=== PATIENT | female | born 1945 | race Two or more races ===

== ENCOUNTER → 2017-05-09 | Emergency (ER) | payer OTHER ==
[~2017-05-09] VITALS: Ht 170.2 cm; Wt 68.9 kg
[~2017-05-09] MED LIST: AMOX1TAB12 PO; ASPIR 8181 MG; CLARITIN-D1 TAB.SR1 PO; DOLOGEN CAPLET1 EACH PO; FLONASE16 GM NS; INTESTINEX1 CA1 PO; LIPITOR20 MG; MUCINEX1200 MG/BO PO; NASONEX17 GM NS; TOPROL XL25 M1; TUSSIONEX PENNKI5 ML PO; ZITHROMAX TRI-500 MG PO; ZITHROMAX200 MG PO; ZYRTEC10 MG PO; [UNRECOGNIZED DRUG - OTHER] PO
== END | disposition left against medical advice (07) ==
LOC: ER 17:36
DX: Z53.20 Procedure and treatment not carried out because of patient's decision for unspecified reasons (principal)

== ENCOUNTER 2017-05-10 14:03 | Emergency (ER) | payer OTHER ==
[~2017-05-10] VITALS: Ht 170.2 cm; Wt 69.4 kg
== END 2017-05-10 23:04 | disposition home or self-care (01) ==
LOC: ER 14:03
DX: J06.9 Acute upper respiratory infection, unspecified (principal); J11.1 Influenza due to unidentified influenza virus with other respiratory manifestations

== ENCOUNTER → 2017-07-30 | Outpatient (CLI) | payer OTHER | END | disposition home or self-care (01) | LOC: SONOGRAMA 08:46 | DX: R16.0 Hepatomegaly, not elsewhere classified (principal); K76.89 Other specified diseases of liver ==

== ENCOUNTER 2017-09-15 20:01 | Emergency (ER) | payer OTHER ==
[~2017-09-15] VITALS: Ht 157.5 cm; Wt 72.1 kg
== END 2017-09-15 22:44 | disposition home or self-care (01) ==
LOC: ER 20:01
DX: S91.321A Laceration with foreign body, right foot, initial encounter (principal); W25.XXXA Contact with sharp glass, initial encounter; Y93.89 Activity, other specified; Y92.018 Other place in single-family (private) house as the place of occurrence of the external cause; Y99.8 Other external cause status

== ENCOUNTER 2017-09-16 16:21 | Emergency (ER) | payer OTHER ==
[~2017-09-16] VITALS: Ht 154.9 cm; Wt 72.1 kg
== END 2017-09-16 18:22 | disposition home or self-care (01) ==
LOC: ER 16:21
DX: M79.671 Pain in right foot (principal); S91.321D Laceration with foreign body, right foot, subsequent encounter; W25.XXXD Contact with sharp glass, subsequent encounter

== ENCOUNTER 2017-09-22 16:46 | Emergency (ER) | payer OTHER ==
[~2017-09-22] VITALS: Ht 154.9 cm; Wt 72.1 kg
== END 2017-09-22 17:38 | disposition home or self-care (01) ==
LOC: ER 16:46
DX: Z48.02 Encounter for removal of sutures (principal)

== ENCOUNTER 2017-10-08 11:23 | Emergency (ER) | payer OTHER ==
[~2017-10-08] VITALS: Ht 170.2 cm; Wt 72.1 kg
== END 2017-10-08 13:43 | disposition home or self-care (01) ==
LOC: ER 11:23
DX: J06.9 Acute upper respiratory infection, unspecified (principal)

== ENCOUNTER 2017-12-26 12:17 | Outpatient (CLI) | payer OTHER | END 2017-12-26 12:25 | disposition home or self-care (01) | LOC: RAD 501 12:17 | DX: D12.8 Benign neoplasm of rectum (principal) ==

== ENCOUNTER 2018-01-09 06:00 | Day surgery (SDC) | payer OTHER ==
[~2018-01-09] VITALS: Ht 170.2 cm; Wt 71.2 kg
== END 2018-01-10 10:32 | disposition home or self-care (01) ==
LOC: CIR.AMB 06:00 → SURH 06:05 → O/R 06:05 → SURG 10:58 → O/R 10:58 → SURH 11:45 → SURG 12:04 → O/R 12:04 → SURH 12:04 → EDSTATUS 13:30 → SURH 13:30 → CIR.AMB 01-10 10:32 → O/R 01-10 11:32 → SURH 01-10 11:32
DX: D12.8 Benign neoplasm of rectum (principal)

== ENCOUNTER 2018-03-11 11:29 | Emergency (ER) | payer OTHER ==
[~2018-03-11] VITALS: Ht 170.2 cm; Wt 71.2 kg
[2018-03-11] MEDS ORDERED: DICLOFENAC SODI50 MG PO (15:26)
[2018-03-11] MEDS ORDERED: NORFLEX100MG PO (15:26)
[2018-03-11] MEDS ORDERED: MEDROLPACK PO (15:26)
== END 2018-03-11 15:54 | disposition home or self-care (01) ==
LOC: ER 11:29
DX: M54.5 Low back pain (principal)

== ENCOUNTER 2018-03-22 15:27 | Emergency (ER) | payer OTHER ==
[~2018-03-22] VITALS: Ht 170.2 cm; Wt 70.8 kg
[~2018-03-22 15:27] MED LIST changes: +DICLOFENAC SODI50 MG PO; +MEDROLPACK PO; +NORFLEX100MG PO
== END 2018-03-22 22:01 | disposition home or self-care (01) ==
LOC: ER 15:27
DX: M25.561 Pain in right knee (principal)

== ENCOUNTER 2018-03-26 09:27 | Outpatient (CLI) | payer OTHER | END 2018-03-26 16:01 | disposition home or self-care (01) | LOC: MRI 09:27 | DX: M23.321 Other meniscus derangements, posterior horn of medial meniscus, right knee (principal) | CPT/HCPCS: 73722; A9579; 73721 ==

== ENCOUNTER 2018-07-18 13:30 | Outpatient (CLI) | payer OTHER | END 2018-07-18 17:00 | disposition home or self-care (01) | LOC: MRI 13:30 | DX: M25.561 Pain in right knee (principal) | CPT/HCPCS: 73721 ==

== ENCOUNTER → 2018-08-01 | Outpatient (CLI) | payer OTHER | END | disposition home or self-care (01) | LOC: NUCLEAR 07-22 10:00 | DX: M81.0 Age-related osteoporosis without current pathological fracture (principal) ==

== ENCOUNTER 2018-08-28 10:33 | Outpatient (CLI) | payer OTHER | END 2018-08-28 11:18 | disposition home or self-care (01) | LOC: RAD 501 10:33 | DX: M25.561 Pain in right knee (principal); M25.562 Pain in left knee ==

== ENCOUNTER 2019-02-25 10:33 | Outpatient (CLI) | payer OTHER | END 2019-02-25 10:37 | disposition home or self-care (01) | LOC: RAD 10:33 | DX: I11.9 Hypertensive heart disease without heart failure (principal) ==

== ENCOUNTER 2019-05-16 09:31 | Outpatient (CLI) | payer OTHER | END 2019-05-16 10:08 | disposition home or self-care (01) | LOC: SONOGRAMA 09:31 | DX: N83.202 Unspecified ovarian cyst, left side (principal) ==

== ENCOUNTER 2019-07-16 11:15 | Outpatient (CLI) | payer OTHER | END 2019-07-16 11:20 | disposition home or self-care (01) | LOC: RAD 11:15 | DX: Z96.651 Presence of right artificial knee joint (principal) ==

== ENCOUNTER 2019-07-22 18:06 | Emergency (ER) | payer OTHER ==
[~2019-07-22] VITALS: Ht 170.2 cm; Wt 68.0 kg
[2019-07-22] MEDS ORDERED: METOPROLOL SUCC25 MG (18:23)
== END 2019-07-22 19:08 | disposition home or self-care (01) ==
LOC: ER 18:06
DX: S52.592A Other fractures of lower end of left radius, initial encounter for closed fracture (principal); M12.532 Traumatic arthropathy, left wrist; W18.09XA Striking against other object with subsequent fall, initial encounter; Z96.651 Presence of right artificial knee joint; Y93.89 Activity, other specified; Y92.018 Other place in single-family (private) house as the place of occurrence of the external cause; Y99.8 Other external cause status

== ENCOUNTER 2019-08-21 11:54 | Outpatient (CLI) | payer OTHER ==
[~2019-08-21 11:54] MED LIST changes: +METOPROLOL SUCC25 MG
== END 2019-08-21 12:04 | disposition home or self-care (01) ==
LOC: RAD 11:54
PROVIDERS: ATTEND Orthopaedic Surgery Hand Surgery
DX: S52.522A Torus fracture of lower end of left radius, initial encounter for closed fracture (principal)

== ENCOUNTER → 2020-06-09 | Outpatient (CLI) | payer OTHER | END | disposition home or self-care (01) | LOC: RAD 09:58 | PROVIDERS: ATTEND Specialist | DX: M79.672 Pain in left foot (principal) ==

== ENCOUNTER → 2020-09-02 | Outpatient (CLI) | payer OTHER | END | disposition home or self-care (01) | LOC: NUCLEAR 08-02 13:00 | PROVIDERS: ATTEND Internal Medicine Rheumatology | DX: M81.0 Age-related osteoporosis without current pathological fracture (principal) ==

== ENCOUNTER 2020-09-19 14:12 | Emergency (ER) | payer OTHER ==
[~2020-09-19] VITALS: Ht 165.1 cm; Wt 71.2 kg
[2020-09-19] MEDS ORDERED: TUSNEL LIQUID178 ML PO (17:16)
[2020-09-19] MEDS ORDERED: XOPENEX0.63 MG/3 IH (17:16)
[2020-09-19] MEDS ORDERED: ZITHROMAX500 MG PO (17:16)
[2020-09-19] MEDS ORDERED: CLARITIN10 M1 PO (17:16)
== END 2020-09-19 17:32 | disposition home or self-care (01) ==
LOC: ER 14:12
DX: J06.9 Acute upper respiratory infection, unspecified (principal); Z11.52 Encounter for screening for COVID-19

== ENCOUNTER 2021-06-28 12:53 | Outpatient (CLI) | payer OTHER ==
[~2021-06-28 12:53] MED LIST changes: +CLARITIN10 M1 PO; +TUSNEL LIQUID178 ML PO; +XOPENEX0.63 MG/3 IH; +ZITHROMAX500 MG PO
== END 2021-06-28 12:54 | disposition home or self-care (01) ==
LOC: RAD 12:53
PROVIDERS: ATTEND Specialist
DX: R05.9 Cough, unspecified (principal)

== ENCOUNTER 2021-11-11 10:02 | Emergency (ER) | payer OTHER ==
[~2021-11-11] VITALS: Ht 170.2 cm; Wt 68.0 kg
[2021-11-11] MEDS ORDERED: SINGULAIR 10MG10 MG PO (10:12)
[2021-11-11] MEDS ORDERED: VITAMIN C500 M6 PO (10:13)
[2021-11-11] MEDS ORDERED: ZITHROMAX500 MG PO (13:34)
[2021-11-11] MEDS ORDERED: XOPENEX0.63 MG/3 IH (13:35)
== END 2021-11-11 13:56 | disposition home or self-care (01) ==
LOC: ER 10:02
DX: J45.901 Unspecified asthma with (acute) exacerbation (principal); Z20.822 Contact with and (suspected) exposure to COVID-19; J06.9 Acute upper respiratory infection, unspecified

== ENCOUNTER 2021-12-03 12:43 | Outpatient (CLI) | payer OTHER ==
[~2021-12-03 12:43] MED LIST changes: +SINGULAIR 10MG10 MG PO; +VITAMIN C500 M6 PO
== END 2021-12-03 12:48 | disposition home or self-care (01) ==
LOC: LAB 12:43
PROVIDERS: ATTEND Specialist
DX: Z20.822 Contact with and (suspected) exposure to COVID-19 (principal)

== ENCOUNTER 2021-12-03 13:24 | Emergency (ER) | payer OTHER ==
[~2021-12-03] VITALS: Ht 170.2 cm; Wt 71.2 kg
== END 2021-12-03 15:35 | disposition home or self-care (01) ==
LOC: ER 13:24
DX: U07.1 COVID-19 (principal)

== ENCOUNTER 2022-09-08 09:41 | Outpatient (CLI) | payer OTHER | END 2022-09-08 09:51 | disposition home or self-care (01) | LOC: RAD 09:41 | PROVIDERS: ATTEND Specialist | DX: M25.571 Pain in right ankle and joints of right foot (principal); S99.911A Unspecified injury of right ankle, initial encounter ==

== ENCOUNTER 2022-10-18 13:47 | Outpatient (CLI) | payer OTHER | END 2022-10-18 13:48 | disposition home or self-care (01) | LOC: NUCLEAR 13:47 | PROVIDERS: ATTEND Internal Medicine Rheumatology | DX: M81.0 Age-related osteoporosis without current pathological fracture (principal) ==

== ENCOUNTER 2022-10-18 14:53 | Emergency (ER) | payer OTHER ==
[~2022-10-18] VITALS: Ht 170.2 cm; Wt 69.9 kg
== END 2022-10-18 17:11 | disposition home or self-care (01) ==
LOC: ER 14:53
DX: J32.8 Other chronic sinusitis (principal)
CPT/HCPCS: 96372; 99284; J0696; J1885

== ENCOUNTER 2023-01-22 08:58 | Outpatient (CLI) | payer OTHER | END 2023-01-22 09:02 | disposition home or self-care (01) | LOC: RAD 08:58 | PROVIDERS: ATTEND Specialist | DX: R05.3 Chronic cough (principal) ==

== ENCOUNTER 2023-11-20 08:42 | Outpatient (CLI) | payer OTHER | END 2023-11-20 09:02 | disposition home or self-care (01) | LOC: SONOGRAMA 08:42 | PROVIDERS: ATTEND Internal Medicine Gastroenterology | DX: R16.1 Splenomegaly, not elsewhere classified (principal) ==

== ENCOUNTER 2024-03-09 10:57 | Emergency (ER) | payer OTHER ==
[~2024-03-09] VITALS: Ht 162.6 cm; Wt 63.5 kg
[2024-03-09] MEDS ORDERED: LEVALBUTEROL HCL 0.63 MG/3 ML SOLUTION IH ONE (11:30)
[2024-03-09] MEDS ORDERED: METHYLPREDNISOLONE SOD SUCC 40 MG VIAL IM ONE (11:30)
[2024-03-09] MEDS ORDERED: BENZONATATE 200 MG CAPSULE PO ONE (11:30)
[2024-03-09 11:57] LABS: HEMOGLOBIN 13.1 g/dL (12.0-15.00); MEAN CELL VOLUME 90.8 fL (80.00-100.00); MEAN CORPUSCULAR HEMOGLOBIN 30.6 pg (27.00-32.0); MEAN CORPUSCULAR HGB CONC 33.6 g/dl (32.0-36.0); PLATELET COUNT 227 K/uL (150-450); RED BLOOD COUNT 4.29 M/uL (4.00-6.00); RED CELL DISTRIBUTION WIDTH 14.3 % (11.5-14.5)
[2024-03-09 12:27] LABS: URINE APPEARANCE Clear; URINE BACTERIA 6.1 uL (0.0-1933); URINE BILIRRUBIN Negative (NEGATIVE); URINE BLOOD Negative; URINE COLOR Yellow; URINE EPITHELIAL CELLS 3.4 uL (0.0-38.8); URINE GLUCOSE Negative (NEGATIVE); URINE KETONE Negative (NEGATIVE); URINE LEUKOCYTE Negative; URINE NITRATE Negative; URINE PROTEIN Negative (NEGATIVE); URINE UROBILINOGEN 0.2 E.U./dl; URINE WBC 6.1 uL (0.0-23.2)
[2024-03-09] MEDS ORDERED: AZITHROMYCIN500 MG PO (12:37)
[2024-03-09] MEDS ORDERED: LEVALBUTER0.63 MG/3 IH (12:37)
[2024-03-09] MEDS ORDERED: BENZONATATE200 M1 PO (12:37)
[2024-03-09] MEDS ORDERED: PEPCID AC20 MG PO (12:37)
[2024-03-09] MEDS ORDERED: SINGULAIR10 MG PO (12:38)
== END 2024-03-09 12:55 | disposition home or self-care (01) ==
LOC: ER 10:57
PROVIDERS: General Practice
DX: R53.81 Other malaise (principal); R05.9 Cough, unspecified; Z20.822 Contact with and (suspected) exposure to COVID-19
CPT/HCPCS: 36415; 94640; 96372; 99282; J3490

== ENCOUNTER 2024-03-15 08:53 | Emergency (ER) | payer OTHER ==
[~2024-03-15] VITALS: Ht 170.2 cm; Wt 68.0 kg
[~2024-03-15 08:53] MED LIST changes: +AZITHROMYCIN500 MG PO; +BENZONATATE200 M1 PO; +LEVALBUTER0.63 MG/3 IH; +PEPCID AC20 MG PO; +SINGULAIR10 MG PO
[2024-03-15 08:59] VITALS: BP 122/70; O2SAT 93
[2024-03-15] MEDS ORDERED: AMOX1TAB5 PO (12:10)
== END 2024-03-15 12:16 | disposition home or self-care (01) ==
LOC: ER 08:55
DX: R05.9 Cough, unspecified (principal); J40 Bronchitis, not specified as acute or chronic; Z20.822 Contact with and (suspected) exposure to COVID-19

== ENCOUNTER 2024-11-05 10:20 | Outpatient (CLI) | payer OTHER ==
[~2024-11-05 10:20] MED LIST changes: +AMOX1TAB5 PO
== END 2024-11-05 10:29 | disposition home or self-care (01) ==
LOC: RAD 10:20
PROVIDERS: ATTEND Specialist
DX: R05.1 Acute cough (principal)

== ENCOUNTER 2024-11-07 08:05 | Outpatient (CLI) | payer OTHER | END 2024-11-07 08:08 | disposition home or self-care (01) | LOC: SONOGRAMA 08:05 | DX: R10.31 Right lower quadrant pain (principal) ==

== ENCOUNTER 2024-11-12 09:55 | Outpatient (CLI) | payer OTHER | END 2024-11-12 09:56 | disposition home or self-care (01) | LOC: NUCLEAR 09:55 | PROVIDERS: ATTEND Specialist | DX: M81.0 Age-related osteoporosis without current pathological fracture (principal) ==

== ENCOUNTER 2024-12-06 12:48 | Emergency (ER) | payer OTHER ==
[~2024-12-06] VITALS: Ht 170.2 cm; Wt 69.9 kg
[2024-12-06] MEDS ORDERED: KETOROLAC TROMETHAMINE 60 MG VIAL IM ONE ×2 (14:20→14:30)
[2024-12-06 14:43] LABS: BASO % 0.4 % (0.1-1.2); EOS # 0.33 (0.04-0.54); EOS % 2.7 % (0.7-7.0); LYMPH # 1.71 (1.18-3.74); LYMPH % 14.1 % (19.3-53.1); MEAN PLATELET VOLUME 9.50 fl (9.4-12.4); MONO # 1.37 (0.24-0.82); MONO % 11.3 % (4.7-12.5); NEUT # 8.62 (1.56-6.13); NEUT % 71.3 % (34.0-71.1); RED CELL DISTRIBUTION WIDTH 14.1 % (11.6-14.4)
[2024-12-06 15:03] LABS: ALT/SGPT 17.0 U/L (12-78); AST/SGOT 13.0 U/L (15-37); BILIRUBIN TOTAL 0.29 mg/dL (0.3-1.2); BUN CREA RATIO 24.0 (7.0-25.0); CREATININE SERUM 0.71 mg/dL (0.55-1.02); GFR 79.2; GLOBULINA 3.5 G/DL (2.4-3.5); GLUCOSE FASTING 95.0 mg/dL (65-100); OSMOLALITY SERUM 283.0 MOSM/KG (275-295)
[2024-12-06 15:23] LABS: URINE APPEARANCE Cloudy; URINE BILIRRUBIN Negative (NEGATIVE); URINE BLOOD Large; URINE COLOR Yellow; URINE GLUCOSE Negative (NEGATIVE); URINE KETONE Negative (NEGATIVE); URINE LEUKOCYTE Large; URINE NITRATE Positive; URINE UROBILINOGEN 1.0 E.U./dl
[2024-12-06 15:27] LABS: URINE EPITHELIAL CELLS 8.3 uL (0.0-38.8); URINE RBC 39.3 uL (0.0-20.8); URINE WBC 3406.3 uL (0.0-23.2)
[2024-12-06 15:37] LABS: TYPE CELLS SQUAMOUS; URINE BACTERIA > 9821.5 uL (0.0-1933); URINE CAST 1.02 uL (0.0-1.40); URINE PROTEIN 100 (NEGATIVE)
[2024-12-06] MEDS ORDERED: CEFTRIAXONE SODIUM 1,000 MG VIAL ONE (16:09)
[2024-12-06] MEDS ORDERED: CEFTRIAXONE SODIUM 1,000 MG VIAL IM ONE (16:15)
== END 2024-12-06 16:20 ==
LOC: ER 12:49
PROVIDERS: General Practice
DX: N39.0 Urinary tract infection, site not specified (principal); R30.0 Dysuria
CPT/HCPCS: 36415; 96372; 99282; J0696; J1885

== ENCOUNTER 2024-12-07 17:02 | Inpatient (IN) | payer OTHER ==
[~2024-12-07] VITALS: Ht 170.2 cm; Wt 69.9 kg
[2024-12-07] MEDS ORDERED: 0.9 % SODIUM CHLORIDE 1,000 ML IV STA (19:18)
[2024-12-07] MEDS ORDERED: PIPERACILLIN/TAZOBACTAM SODIUM 4.5 GM VIAL IV STA (19:19)
[2024-12-07] MEDS ORDERED: FAMOTIDINE/PF 20 MG/2 ML VIAL IV ONE (19:30)
[2024-12-07] MEDS ORDERED: ONDANSETRON HCL 2 MG/ML VIAL IV ONE (19:30)
[2024-12-07] MEDS ORDERED: FAMOTIDINE/PF 20 MG/2 ML VIAL ONE (19:39)
[2024-12-07] MEDS ORDERED: ONDANSETRON HCL 2 MG/ML VIAL ONE (19:39)
[2024-12-07 20:02] LABS: URINE APPEARANCE Clear; URINE BILIRRUBIN Small (NEGATIVE); URINE BLOOD Negative; URINE COLOR Orange; URINE GLUCOSE Negative (NEGATIVE); URINE KETONE Negative (NEGATIVE); URINE LEUKOCYTE Small; URINE NITRATE Positive; URINE PROTEIN Trace (NEGATIVE); URINE UROBILINOGEN 1.0 E.U./dl
[2024-12-07 20:06] LABS: URINE BACTERIA 8.3 uL (0.0-1933); URINE EPITHELIAL CELLS 13.6 uL (0.0-38.8); URINE RBC 4.8 uL (0.0-20.8); URINE WBC 4.7 uL (0.0-23.2)
[2024-12-07 20:09] LABS: BASO % 0.3 % (0.1-1.2); EOS # 0.06 (0.04-0.54); EOS % 0.5 % (0.7-7.0); LYMPH # 1.07 (1.18-3.74); LYMPH % 8.3 % (19.3-53.1); MEAN PLATELET VOLUME 10.00 fl (9.4-12.4); MONO # 1.33 (0.24-0.82); MONO % 10.3 % (4.7-12.5); NEUT # 10.37 (1.56-6.13); NEUT % 80.2 % (34.0-71.1); RED CELL DISTRIBUTION WIDTH 13.9 % (11.6-14.4)
[2024-12-07 20:19] LABS: URINE CAST 0.14 uL (0.0-1.40)
[2024-12-07 20:31] LABS: INR 0.95
[2024-12-07 20:35] LABS: ALT/SGPT 19.0 U/L (12-78); AST/SGOT 41.0 U/L (15-37); BILIRUBIN TOTAL 0.57 mg/dL (0.3-1.2); BUN CREA RATIO 13.0 (7.0-25.0); CREATININE SERUM 2.28 mg/dL (0.55-1.02); GFR 20.61; GLOBULINA 3.7 G/DL (2.4-3.5); GLUCOSE FASTING 122.0 mg/dL (65-100); OSMOLALITY SERUM 281.0 MOSM/KG (275-295)
[2024-12-07] MEDS ORDERED: CEFTRIAXONE SODIUM 2,000 MG VIAL ONE (20:41)
[2024-12-07] MEDS ORDERED: CEFTRIAXONE SODIUM 2,000 MG VIAL IV ONE (20:45)
[2024-12-07] MEDS ORDERED: TAMSULOSIN HCL 0.4 MG CAP PO SCH (21:52)
[2024-12-07] MEDS ORDERED: FAMOTIDINE/PF 20 MG in 0.9 % SODIUM CHLORIDE 8 ML IV PUSH SCH (21:53)
[2024-12-07] MEDS ORDERED: ONDANSETRON HCL 4 MG in 0.9 % SODIUM CHLORIDE 50 ML IV PRN (22:00)
[2024-12-07] MEDS ORDERED: ACETAMINOPHEN 500 MG GEL..CAP PO PRN (22:00)
[2024-12-07] MEDS ORDERED: 0.9 % SODIUM CHLORIDE 1,000 ML IV SCH (22:00)
[2024-12-07] MEDS ORDERED: TRAMADOL HCL 50 MG TABLET PO PRN (22:00)
[2024-12-07] MEDS ORDERED: PHENAZOPYRIDINE HCL 100 MG TABLET PO SCH (22:02)
[2024-12-07] MEDS ORDERED: PHENAZOPYRIDINE HCL 100 MG TABLET PO ONE (22:14)
[2024-12-07] MEDS ORDERED: TAMSULOSIN HCL 0.4 MG CAP PO ONE (22:14)
[2024-12-07 23:05] VITALS: BP 135/70; O2SAT 95
[2024-12-08 01:52] VITALS: BP 158/78; O2SAT 98
[2024-12-08 08:36] VITALS: BP 135/72; O2SAT 97
[2024-12-08] MEDS ORDERED: METOPROLOL SUCCINATE 25 MG TAB.SR.24H PO SCH (09:00)
[2024-12-08] MEDS ORDERED: CEFTRIAXONE SODIUM 2,000 MG in 0.9 % SODIUM CHLORIDE 100 ML IV SCH (09:00)
[2024-12-08 09:18] LABS: BUN CREA RATIO 12.0 (7.0-25.0); CREATININE SERUM 2.31 mg/dL (0.55-1.02); GFR 20.3; GLUCOSE FASTING 177.0 mg/dL (65-100); OSMOLALITY SERUM 291.0 MOSM/KG (275-295)
[2024-12-08] MEDS ORDERED: SODIUM CHLORIDE 0.45 % 1,000 ML IV SCH (14:30)
[2024-12-08 16:00] VITALS: BP 145/79
[2024-12-09 00:41] VITALS: BP 138/82; O2SAT 94
[2024-12-09 06:17] LABS: BASO % 0.6 % (0.1-1.2); EOS # 0.28 (0.04-0.54); EOS % 3.9 % (0.7-7.0); LYMPH # 1.52 (1.18-3.74); LYMPH % 20.9 % (19.3-53.1); MEAN PLATELET VOLUME 10.30 fl (9.4-12.4); MONO # 0.95 (0.24-0.82); NEUT # 4.44 (1.56-6.13); NEUT % 60.9 % (34.0-71.1); RED CELL DISTRIBUTION WIDTH 14.1 % (11.6-14.4)
[2024-12-09 06:32] LABS: ALT/SGPT 15.0 U/L (12-78); AST/SGOT 23.0 U/L (15-37); BILIRUBIN TOTAL 0.28 mg/dL (0.3-1.2); BUN CREA RATIO 14.0 (7.0-25.0); CREATININE SERUM 1.8 mg/dL (0.55-1.02); GFR 27.07; GLOBULINA 2.9 G/DL (2.4-3.5); GLUCOSE FASTING 94.0 mg/dL (65-100); OSMOLALITY SERUM 291.0 MOSM/KG (275-295)
[2024-12-09 06:43] LABS: MONO % 13.1 % (4.7-12.5)
[2024-12-09 16:28] VITALS: BP 177/80
[2024-12-09 18:11] VITALS: BP 182/87; O2SAT 98
[2024-12-09 19:07] VITALS: BP 130/90
[2024-12-10 03:12] VITALS: BP 149/72; O2SAT 98
[2024-12-10 08:39] VITALS: BP 168/95; O2SAT 97
[2024-12-10] MEDS ORDERED: AMINO ACIDS/PROTEIN HYDROLYS 30 ML BLIST.PACK PO SCH (17:00)
[2024-12-10 17:06] VITALS: BP 128/82; O2SAT 96
[2024-12-11 03:05] VITALS: BP 108/79; O2SAT 97
[2024-12-11 06:20] LABS: BASO % 0.7 % (0.1-1.2); EOS # 0.50 (0.04-0.54); EOS % 7.4 % (0.7-7.0); LYMPH # 1.84 (1.18-3.74); LYMPH % 27.1 % (19.3-53.1); MEAN PLATELET VOLUME 10.30 fl (9.4-12.4); MONO # 0.78 (0.24-0.82); MONO % 11.5 % (4.7-12.5); NEUT # 3.58 (1.56-6.13); NEUT % 52.9 % (34.0-71.1); RED CELL DISTRIBUTION WIDTH 13.7 % (11.6-14.4)
[2024-12-11 06:58] LABS: BUN CREA RATIO 19.0 (7.0-25.0); CREATININE SERUM 0.96 mg/dL (0.55-1.02); GFR 55.92; GLUCOSE FASTING 90.0 mg/dL (65-100); OSMOLALITY SERUM 288.0 MOSM/KG (275-295)
[2024-12-11] MEDS ORDERED: MAGNESIUM SULFATE IN WATER 50 ML IV NR (08:00)
[2024-12-11] MEDS ORDERED: AMOX1TAB5 PO (08:20)
[2024-12-11] MEDS ORDERED: INTESTINEX680 M1 PO (08:20)
[2024-12-11 08:56] VITALS: BP 150/84; O2SAT 97
== END 2024-12-11 11:50 | disposition home or self-care (01) | DRG 683 ==
LOC: ER 17:02 → MEDI 22:00
PROVIDERS: General Practice; Internal Medicine Nephrology; ADMIT Internal Medicine; ATTEND Internal Medicine
PROC: BW21ZZZ Computerized Tomography (CT Scan) of Abdomen and Pelvis (ICD-10-PCS; principal; 2024-12-07)
PROC: BT4JZZZ Ultrasonography of Kidneys and Bladder (ICD-10-PCS; 2024-12-07)
DX: N17.9 Acute kidney failure, unspecified (principal); N20.1 Calculus of ureter; N39.0 Urinary tract infection, site not specified; E86.0 Dehydration; I12.9 Hypertensive chronic kidney disease with stage 1 through stage 4 chronic kidney disease, or unspecified chronic kidney disease; I25.10 Atherosclerotic heart disease of native coronary artery without angina pectoris; N18.9 Chronic kidney disease, unspecified

== ENCOUNTER 2025-01-27 14:13 | Outpatient (CLI) | payer OTHER ==
[~2025-01-27 14:13] MED LIST changes: +INTESTINEX680 M1 PO
== END 2025-01-27 14:15 | disposition home or self-care (01) ==
LOC: RAD 14:13
PROVIDERS: ATTEND Physical Medicine & Rehabilitation
DX: M54.59 Other low back pain (principal)